=== PATIENT | female | born 1935 | race Caucasian/White ===

== ENCOUNTER 2017-07-26 18:52 | Emergency (ER) | payer MEDICARE, BC ==
[~2017-07-26] VITALS: Wt 74.2 kg
[~2017-07-26 18:52] MED LIST: CALTRATE 600600 MG PO; FISH OIL SUPER1 SGL PO; GLUCOSAMINE PO; GLUCOSAMINE500 MG; HCTZ 25MG TAB25 MG PO; MULTIPLE VITAMI1 CAP PO; PREMARIN 0.60.625 M1 PO; PRILOSEC 20MG20 MG PO; SYNTHROID0.088 MG/T PO
[2017-07-26 19:43] LABS: BASO % 0.4 % (0.0-2.0); EOS % 0.2 % (0-4.0); GRAN # 6.3 (1.4-6.5); GRAN % 68.8 % (42.2-75.2); HEMOGLOBIN 12.9 g/dl (12.5-16.0); LYMPH # 1.4 (1.2-3.4); LYMPH % 15.3 % (20.0-51.0); MEAN CELL VOLUME 93 fl (80.0-100.0); MEAN CORPUSCULAR HEMOGLOBIN 30 pg (27.0-31.0); MEAN CORPUSCULAR HGB CONC 32 g/dl (33.0-37.0); MEAN PLATELET VOLUME 10.5 fl (7.4-10.4); MONO # 1.4 (0.1-0.6); PLATELET COUNT 231 K/mm3 (130-400); REDCELL DISTRIBUTION WIDTH-CV 13.4 % (11.5-14.5)
[2017-07-26 20:01] LABS: BILIRUBIN,TOTAL 0.3 mg/dL (0.0-1.0); C-REACTIVE PROTEIN 1.9 mg/dL (0.0-0.9); CALCIUM 8.7 mg/dL (8.4-10.2); CREATININE, serum 1.05 mg/dL (0.52-1.25); POTASSIUM 3.9 mmol/L (3.4-5.0); TOTAL PROTEIN 7.3 gm/dL (6.4-8.2)
[2017-07-26 20:22] LABS: COLLECTION METHOD CATHETER
[2017-07-26 20:28] LABS: THYROID STIMULATING HORMONE 1.64 uIU/mL (0.465-4.680)
[2017-07-26 20:29] LABS: MUCOUS Present /lpf; PH 5 (5-8); SQUAMOUS EPITHELIAL 0-2 /hpf; URINE APPEARANCE Clear; URINE BACTERIA None Seen /hpf; URINE BILIRUBIN Negative (NEGATIVE); URINE BLOOD 2+ (NEGATIVE); URINE COLOR Yellow; URINE GLUCOSE Negative (NEGATIVE); URINE KETONE Negative (NEGATIVE); URINE LEUKOCYTE ESTERASE Negative (NEGATIVE); URINE NITRATE Negative (NEGATIVE); URINE PROTEIN(semi-quant) Negative (NEGATIVE); URINE UROBILINOGEN Negative (NEGATIVE)
[2017-07-26 21:20] VITALS: TEMP 101.8
[2017-07-26 21:39] LABS: INFLUENZA A NEGATIVE; INFLUENZA B POSITIVE
[2017-07-26] MEDS ORDERED: TAMIFLU 75MG75 MG PO (21:44)
[2017-07-26 22:01] VITALS: BP 178/89; PULSE 100
== END 2017-07-26 22:04 | disposition home or self-care (01) ==
LOC: COL.ER 18:52
PROVIDERS: Emergency Medicine
DX: J11.1 Influenza due to unidentified influenza virus with other respiratory manifestations (principal); R47.1 Dysarthria and anarthria
CPT/HCPCS: J1885; J7030; J7050; Q9967

== ENCOUNTER 2017-09-27 12:09 | Observation (INO) | payer MEDICARE, BC ==
[~2017-09-27] VITALS: Ht 154.9 cm; Wt 56.8 kg
[~2017-09-27 12:09] MED LIST changes: +LEVOXYL0.088 MG PO; +SEROQUEL 2525 MG/TAB PO; +TAMIFLU 75MG75 MG PO
[2017-09-27 12:36] LABS: BASO # 0.1 (0.0-0.2); BASO % 0.8 % (0.0-2.0); EOS # 0.3 (0.0-0.7); EOS % 3.2 % (0-4.0); GRAN # 5.5 (1.4-6.5); HEMATOCRIT 38.8 % (37.0-47.0); HEMOGLOBIN 12.6 g/dl (12.5-16.0); LYMPH # 2.4 (1.2-3.4); LYMPH % 26.5 % (20.0-51.0); MEAN CELL VOLUME 92 fl (80.0-100.0); MEAN CORPUSCULAR HEMOGLOBIN 30 pg (27.0-31.0); MEAN CORPUSCULAR HGB CONC 33 g/dl (33.0-37.0); MEAN PLATELET VOLUME 11.3 fl (7.4-10.4); MONO # 0.7 (0.1-0.6); MONO % 8.1 % (1.7-9.3); PLATELET COUNT 297 K/mm3 (130-400); REDCELL DISTRIBUTION WIDTH-CV 13.5 % (11.5-14.5)
[2017-09-27 12:57] LABS: ALANINE AMINOTRANSFERASE 27 U/L (9-52); ALBUMIN 3.6 gm/dL (3.5-5.0); ALKALINE PHOSPHATASE 76 U/L (50-136); ANION GAP 6 mmol/L (7-16); AST,SGOT 16 U/L (15-37); BILIRUBIN,TOTAL 0.3 mg/dL (0.0-1.0); BLOOD UREA NITROGEN 14 mg/dL (7-17); C-REACTIVE PROTEIN 0.7 mg/dL (0.0-0.9); CALCIUM 8.8 mg/dL (8.4-10.2); CARBON DIOXIDE 27 mmol/L (22-30); CHLORIDE 104 mmol/L (98-107); CREATININE, serum 0.99 mg/dL (0.52-1.25); GLUCOSE 133 mg/dL (74-106); POTASSIUM 3.9 mmol/L (3.4-5.0); SODIUM 138 mmol/L (137-145); TOTAL PROTEIN 6.7 gm/dL (6.4-8.2)
[2017-09-27 13:10] LABS: TROPONIN-I < 0.012 ng/mL (0.000-0.034)
[2017-09-27 14:35] LABS: COLLECTION METHOD CLEAN CATCH
[2017-09-27 14:40] VITALS: BP 145/67; PULSE 80
[2017-09-27 15:12] LABS: MUCOUS Present /lpf; PH 6 (5-8); SQUAMOUS EPITHELIAL None Seen /hpf; URINE APPEARANCE Clear; URINE BACTERIA None Seen /hpf; URINE BILIRUBIN Negative (NEGATIVE); URINE BLOOD Negative (NEGATIVE); URINE COLOR Yellow; URINE GLUCOSE Negative (NEGATIVE); URINE KETONE Negative (NEGATIVE); URINE LEUKOCYTE ESTERASE Negative (NEGATIVE); URINE NITRATE Negative (NEGATIVE); URINE PROTEIN(semi-quant) Negative (NEGATIVE); URINE UROBILINOGEN Negative (NEGATIVE)
[2017-09-27 16:14] VITALS: BP 149/66; PULSE 80; TEMP 98.5
[2017-09-27 20:59] VITALS: BP 139/51; PULSE 83; TEMP 98.4
[2017-09-27 23:31] VITALS: BP 141/44; PULSE 83; TEMP 98.3
[2017-09-28 03:21] VITALS: BP 130/51; PULSE 97; TEMP 98.6
[2017-09-28 06:43] LABS: BASO # 0.1 (0.0-0.2); BASO % 0.7 % (0.0-2.0); EOS # 0.3 (0.0-0.7); EOS % 2.9 % (0-4.0); GRAN # 5.5 (1.4-6.5); GRAN % 57.2 % (42.2-75.2); HEMATOCRIT 37.6 % (37.0-47.0); HEMOGLOBIN 12.3 g/dl (12.5-16.0); LYMPH # 2.9 (1.2-3.4); LYMPH % 30.3 % (20.0-51.0); MEAN CELL VOLUME 92 fl (80.0-100.0); MEAN CORPUSCULAR HEMOGLOBIN 30 pg (27.0-31.0); MEAN CORPUSCULAR HGB CONC 33 g/dl (33.0-37.0); MEAN PLATELET VOLUME 11.6 fl (7.4-10.4); MONO # 0.8 (0.1-0.6); MONO % 8.6 % (1.7-9.3); PLATELET COUNT 273 K/mm3 (130-400); REDCELL DISTRIBUTION WIDTH-CV 13.6 % (11.5-14.5)
[2017-09-28 06:50] LABS: CALCIUM 8.7 mg/dL (8.4-10.2); CREATININE, serum 0.74 mg/dL (0.52-1.25); POTASSIUM 3.8 mmol/L (3.4-5.0)
[2017-09-28 07:51] VITALS: BP 135/60; PULSE 89; TEMP 98.7
[2017-09-28 12:52] LABS: TSH w REFLEX 0.137 uIU/mL (0.465-4.680)
[2017-09-28 16:53] VITALS: BP 114/48; PULSE 116; TEMP 97.6
[2017-09-28 21:25] VITALS: BP 119/39; PULSE 91; TEMP 98.9
[2017-09-29 00:34] VITALS: BP 112/75; TEMP 98
[2017-09-29 06:39] LABS: BASO # 0.1 (0.0-0.2); BASO % 0.9 % (0.0-2.0); EOS # 0.4 (0.0-0.7); EOS % 4.6 % (0-4.0); GRAN # 4.3 (1.4-6.5); GRAN % 46.2 % (42.2-75.2); HEMATOCRIT 37.5 % (37.0-47.0); HEMOGLOBIN 12.1 g/dl (12.5-16.0); LYMPH # 3.6 (1.2-3.4); LYMPH % 38.6 % (20.0-51.0); MEAN CELL VOLUME 92 fl (80.0-100.0); MEAN CORPUSCULAR HEMOGLOBIN 30 pg (27.0-31.0); MEAN CORPUSCULAR HGB CONC 32 g/dl (33.0-37.0); MEAN PLATELET VOLUME 11.5 fl (7.4-10.4); MONO # 0.9 (0.1-0.6); MONO % 9.5 % (1.7-9.3); PLATELET COUNT 279 K/mm3 (130-400); REDCELL DISTRIBUTION WIDTH-CV 13.3 % (11.5-14.5)
[2017-09-29 07:00] LABS: CALCIUM 8.6 mg/dL (8.4-10.2); CREATININE, serum 0.76 mg/dL (0.52-1.25); POTASSIUM 3.3 mmol/L (3.4-5.0)
[2017-09-29 07:37] VITALS: BP 121/57; PULSE 90; TEMP 97.4
[2017-09-29] MEDS ORDERED: KEPPRA250 MG PO ×2 (08:57→09:47)
[2017-09-29] MEDS ORDERED: KEPPRA 500MG500 MG PO (09:47)
[2017-09-29 11:15] VITALS: BP 100/56; PULSE 76; TEMP 98.9
== END 2017-09-29 12:33 | disposition home or self-care (01) ==
LOC: COL.ER 12:09 → MEDICAL 14:52
PROVIDERS: Emergency Medicine; Physician Assistant
DX: R25.8 Other abnormal involuntary movements (principal); E87.6 Hypokalemia; F03.90 Unspecified dementia, unspecified severity, without behavioral disturbance, psychotic disturbance, mood disturbance, and anxiety; I35.1 Nonrheumatic aortic (valve) insufficiency; I10 Essential (primary) hypertension; E03.9 Hypothyroidism, unspecified; E78.5 Hyperlipidemia, unspecified; K21.9 Gastro-esophageal reflux disease without esophagitis; M19.90 Unspecified osteoarthritis, unspecified site
CPT/HCPCS: 99223-AI; 99232-AI; G0378; G8978-GP; G8979-GP; G8987-GO; G8988-GO; J1650

== ENCOUNTER 2018-07-15 14:37 | Emergency (ER) | payer MEDICARE, BC ==
[~2018-07-15] VITALS: Ht 157.5 cm; Wt 63.6 kg
[~2018-07-15 14:37] MED LIST changes: +KEPPRA 500MG500 MG PO; +KEPPRA250 MG PO
[2018-07-15 14:40] VITALS: TEMP 97.3
[2018-07-15] MEDS ORDERED: NAMENDA 10MG TA10 MG PO ×2 (15:07→15:10)
[2018-07-15] MEDS ORDERED: TYLENOL 325MG325 MG PO (15:08)
[2018-07-15] MEDS ORDERED: CALMOSEPTINE OI71 GM TP (15:08)
[2018-07-15 15:20] LABS: BASO # 0.1 (0.0-0.2); BASO % 0.6 % (0.0-2.0); EOS # 0.1 (0.0-0.7); GRAN # 7.6 (1.4-6.5); GRAN % 77.3 % (42.2-75.2); HEMATOCRIT 41.1 % (37.0-47.0); HEMOGLOBIN 13.1 g/dl (12.5-16.0); LYMPH # 1.5 (1.2-3.4); LYMPH % 14.7 % (20.0-51.0); MEAN CELL VOLUME 94 fl (80.0-100.0); MEAN CORPUSCULAR HEMOGLOBIN 30 pg (27.0-31.0); MEAN CORPUSCULAR HGB CONC 32 g/dl (33.0-37.0); MEAN PLATELET VOLUME 11.2 fl (7.4-10.4); MONO # 0.6 (0.1-0.6); PLATELET COUNT 245 K/mm3 (130-400); RED BLOOD COUNT 4.38 M/mm3 (4.10-5.30); REDCELL DISTRIBUTION WIDTH-CV 13.5 % (11.5-14.5)
[2018-07-15 15:30] LABS: ALBUMIN 3.8 gm/dL (3.5-5.0); BILIRUBIN,TOTAL 0.3 mg/dL (0.0-1.0); CREATININE, serum 1.17 mg/dL (0.52-1.25); POTASSIUM 4.2 mmol/L (3.4-5.0); TOTAL PROTEIN 7.1 gm/dL (6.4-8.2)
[2018-07-15 15:36] LABS: COLLECTION METHOD CLEAN CATCH
[2018-07-15 15:47] LABS: PROLACTIN 48.1 ng/mL (3.0-18.6)
[2018-07-15 15:47] LABS: MUCOUS Present /lpf; PH 6 (5-8); SQUAMOUS EPITHELIAL 0-2 /hpf; URINE APPEARANCE Hazy; URINE BACTERIA Rare /hpf; URINE BILIRUBIN Negative (NEGATIVE); URINE BLOOD 1+ (NEGATIVE); URINE COLOR Yellow; URINE GLUCOSE Negative (NEGATIVE); URINE KETONE Negative (NEGATIVE); URINE LEUKOCYTE ESTERASE 1+ (NEGATIVE); URINE NITRATE Negative (NEGATIVE); URINE PROTEIN(semi-quant) Negative (NEGATIVE); URINE UROBILINOGEN Negative (NEGATIVE)
[2018-07-15] MEDS ORDERED: MACROBID 1100 MG/CAP PO (15:59)
[2018-07-15 16:00] VITALS: BP 117/55; PULSE 66
== END 2018-07-15 16:39 | disposition home or self-care (01) ==
LOC: COL.ER 14:37
PROVIDERS: Family Medicine
DX: G40.909 Epilepsy, unspecified, not intractable, without status epilepticus (principal); F03.90 Unspecified dementia, unspecified severity, without behavioral disturbance, psychotic disturbance, mood disturbance, and anxiety; N39.0 Urinary tract infection, site not specified; Z79.899 Other long term (current) drug therapy

== ENCOUNTER 2018-12-24 08:09 | Emergency (ER) | payer MEDICARE, BC ==
[~2018-12-24] VITALS: Ht 152.4 cm; Wt 56.8 kg
[~2018-12-24 08:09] MED LIST changes: +CALMOSEPTINE OI71 GM TP; +MACROBID 1100 MG/CAP PO; +NAMENDA 10MG TA10 MG PO; +TYLENOL 325MG325 MG PO
[2018-12-24 08:10] VITALS: BP 161/83; TEMP 98.7
[2018-12-24 08:50] LABS: BASO # 0.1 (0.0-0.2); BASO % 0.4 % (0.0-2.0); EOS # 0.2 (0.0-0.7); GRAN # 7.5 (1.4-6.5); GRAN % 63.5 % (42.2-75.2); HEMATOCRIT 41.2 % (37.0-47.0); HEMOGLOBIN 13.3 g/dl (12.5-16.0); LYMPH % 25.4 % (20.0-51.0); MEAN CELL VOLUME 94 fl (80.0-100.0); MEAN CORPUSCULAR HEMOGLOBIN 30 pg (27.0-31.0); MEAN CORPUSCULAR HGB CONC 32 g/dl (33.0-37.0); MEAN PLATELET VOLUME 11.2 fl (7.4-10.4); MONO % 8.4 % (1.7-9.3); PLATELET COUNT 259 K/mm3 (130-400); RED BLOOD COUNT 4.37 M/mm3 (4.10-5.30); REDCELL DISTRIBUTION WIDTH-CV 13.1 % (11.5-14.5)
[2018-12-24 09:01] LABS: ALANINE AMINOTRANSFERASE < 6 U/L (9-52); ALKALINE PHOSPHATASE 118 U/L (50-136); ANION GAP 10 mmol/L (7-16); AST,SGOT 16 U/L (15-37); BILIRUBIN,TOTAL 0.5 mg/dL (0.0-1.0); BLOOD UREA NITROGEN 18 mg/dL (7-17); CALCIUM 9.3 mg/dL (8.4-10.2); CARBON DIOXIDE 27 mmol/L (22-30); CHLORIDE 103 mmol/L (98-107); CREATININE, serum 0.76 (0.52-1.25); GLUCOSE 104 mg/dL (74-106); POTASSIUM 3.9 mmol/L (3.4-5.0); SODIUM 140 mmol/L (137-145); TOTAL PROTEIN 7.8 gm/dL (6.4-8.2)
[2018-12-24 09:31] LABS: TSH w REFLEX 0.305 uIU/mL (0.465-4.680)
[2018-12-24 11:15] VITALS: PULSE 80
== END 2018-12-24 11:15 | disposition home or self-care (01) ==
LOC: COL.ER 08:09
PROVIDERS: Emergency Medicine
DX: S82.141A Displaced bicondylar fracture of right tibia, initial encounter for closed fracture (principal); I10 Essential (primary) hypertension; E78.5 Hyperlipidemia, unspecified; M10.9 Gout, unspecified; W19.XXXA Unspecified fall, initial encounter; Y92.129 Unspecified place in nursing home as the place of occurrence of the external cause
CPT/HCPCS: L1846

== ENCOUNTER → 2019-05-16 | Outpatient (CLI) | payer MEDICARE, BC ==
[2019-05-16 21:13] LABS: COLLECTION METHOD CLEAN CATCH
[2019-05-16 21:21] LABS: MUCOUS Present /lpf; PH 5 (5-8); URINE APPEARANCE Cloudy; URINE BACTERIA Moderate /hpf; URINE BILIRUBIN Negative (NEGATIVE); URINE BLOOD Negative (NEGATIVE); URINE COLOR Yellow; URINE GLUCOSE Negative (NEGATIVE); URINE KETONE Negative (NEGATIVE); URINE LEUKOCYTE ESTERASE 3+ (NEGATIVE); URINE NITRATE Negative (NEGATIVE); URINE PROTEIN(semi-quant) 1+ (NEGATIVE); URINE UROBILINOGEN Negative (NEGATIVE)
[2019-05-16 21:23] LABS: ALANINE AMINOTRANSFERASE 14 U/L (9-52); ALBUMIN 3.3 gm/dL (3.5-5.0); ALKALINE PHOSPHATASE 80 U/L (50-136); ANION GAP 9 mmol/L (7-16); AST,SGOT 14 U/L (15-37); BILIRUBIN,TOTAL < 0.1 mg/dL (0.0-1.0); BLOOD UREA NITROGEN 19 mg/dL (7-17); CALCIUM 8.6 mg/dL (8.4-10.2); CARBON DIOXIDE 23 mmol/L (22-30); CHLORIDE 107 mmol/L (98-107); CREATININE, serum 0.86 (0.52-1.25); GLUCOSE 91 mg/dL (74-106); POTASSIUM 4.1 mmol/L (3.4-5.0); SODIUM 140 mmol/L (137-145); TOTAL PROTEIN 6.2 gm/dL (6.4-8.2)
[2019-05-16 21:53] LABS: THYROID STIMULATING HORMONE 0.861 uIU/mL (0.465-4.680)
[2019-05-16 22:15] LABS: BASO # 0.1 (0.0-0.2); BASO % 0.7 % (0.0-2.0); EOS # 0.4 (0.0-0.7); EOS % 4.1 % (0-4.0); GRAN # 5.2 (1.4-6.5); GRAN % 49.2 % (42.2-75.2); HEMATOCRIT 37.3 % (37.0-47.0); LYMPH # 3.9 (1.2-3.4); LYMPH % 36.8 % (20.0-51.0); MEAN CELL VOLUME 93 fl (80.0-100.0); MEAN CORPUSCULAR HEMOGLOBIN 30 pg (27.0-31.0); MEAN CORPUSCULAR HGB CONC 32 g/dl (33.0-37.0); MEAN PLATELET VOLUME 11.5 fl (7.4-10.4); MONO # 0.9 (0.1-0.6); MONO % 8.8 % (1.7-9.3); PLATELET COUNT 275 K/mm3 (130-400)
== END ==
LOC: ZCOL.LAB 17:49
PROVIDERS: Internal Medicine
DX: Z51.81 Encounter for therapeutic drug level monitoring (principal); Z13.29 Encounter for screening for other suspected endocrine disorder; N39.0 Urinary tract infection, site not specified; R79.89 Other specified abnormal findings of blood chemistry

== ENCOUNTER → 2019-05-18 | Outpatient (CLI) | payer MEDICARE, BC | LOC: ZCOL.LAB 08:15 → COL.LAB 08:15 | DX: Z51.81 Encounter for therapeutic drug level monitoring (principal) ==

== ENCOUNTER → 2019-09-16 | Outpatient (CLI) | payer MEDICARE, BC | LOC: ZCOL.LAB 11:06 | DX: J10.1 Influenza due to other identified influenza virus with other respiratory manifestations (principal) ==

== ENCOUNTER 2020-01-27 19:54 | Observation (INO) | payer MEDICARE, BC ==
[~2020-01-27] VITALS: Ht 162.6 cm; Wt 60.1 kg
[2020-01-27 20:10] LABS: HEMATOCRIT 43.9 % (37.0-47.0); HEMOGLOBIN 14.1 g/dl (12.5-16.0); MEAN CELL VOLUME 96 fl (80.0-100.0); MEAN CORPUSCULAR HEMOGLOBIN 31 pg (27.0-31.0); MEAN CORPUSCULAR HGB CONC 32 g/dl (33.0-37.0); MEAN PLATELET VOLUME 10.9 fl (7.4-10.4); PLATELET COUNT 294 K/mm3 (130-400); RED BLOOD COUNT 4.58 M/mm3 (4.10-5.30); REDCELL DISTRIBUTION WIDTH-CV 12.6 % (11.5-14.5)
[2020-01-27 20:26] LABS: ALBUMIN 4.1 gm/dL (3.5-5.0); BILIRUBIN,TOTAL 0.3 mg/dL (0.0-1.0); C-REACTIVE PROTEIN 0.8 mg/dL (0.0-0.9); CALCIUM 9.2 mg/dL (8.4-10.2); CREATININE, serum 0.87 (0.52-1.25); POTASSIUM 4.5 mmol/L (3.4-5.0); TOTAL PROTEIN 7.8 gm/dL (6.4-8.2)
[2020-01-27 20:29] LABS: COLLECTION METHOD CLEAN CATCH
[2020-01-27 20:36] LABS: MUCOUS Present /lpf; PH 5 (5-8); SQUAMOUS EPITHELIAL None Seen /hpf; URINE APPEARANCE Hazy; URINE BACTERIA Rare /hpf; URINE BILIRUBIN Negative (NEGATIVE); URINE BLOOD 1+ (NEGATIVE); URINE COLOR Yellow; URINE GLUCOSE 2+ (NEGATIVE); URINE KETONE Negative (NEGATIVE); URINE LEUKOCYTE ESTERASE Negative (NEGATIVE); URINE NITRATE Negative (NEGATIVE); URINE PROTEIN(semi-quant) Negative (NEGATIVE); URINE RBC 0-2 /hpf; URINE UROBILINOGEN Negative (NEGATIVE)
[2020-01-27 20:52] LABS: LYMPHOCYTE 7 % (20.0-51.0); NEUTROPHILS 84 % (42.0-75.2); PLATELET ESTIMATE NORMAL (NORMAL)
[2020-01-27 23:35] VITALS: BP 158/65; PULSE 96; TEMP 99.5
--- NOTE | 2020-01-28 | NUR ---
Pt arrived to the floor via stretcher. Pt has no been verbal. Pt was wet so pt was changed. Pt bottom had no redness. Pt did have mucus and a few spots of blood in her breif. Pt bed is in lowest position and her call light is within reach. Pt bed alarm is also on at this time.
--- NOTE | 2020-01-28 02:00 | NUR ---
Pt was changed at this time pt. Pt still had some mucus in her brief and a few spot of blood was also in her brief. Pt has been verbal to some staff through the shift. Pt does not appear to be in any pain. When rolling her to the left side she did pull back like it was painful. After repositioning her she was ok. Pt has her call light within reach and her bed is in lowest position and bed alarm is on at this time.
[2020-01-28] MEDS ORDERED: ATROVENTNS0.03% NS (03:30)
[2020-01-28] MEDS ORDERED: DULCOLAX TAB5 MG PO (03:40)
[2020-01-28] MEDS ORDERED: MIRALAX PA17 GM/Dose PO (03:42)
[2020-01-28 04:16] VITALS: BP 125/60; PULSE 83; TEMP 98.3
--- NOTE | 2020-01-28 07:31 | NUR ---
Reported off to SADIE Jordan. Pt has her call light within reach and her bed is in lowest position and bed alarm is on at this time. Pt was repostioned in bed and a warm blanket was provided at this time.
[2020-01-28 07:34] LABS: BASO # 0.1 (0.0-0.2); BASO % 0.3 % (0.0-2.0); EOS # 0.3 (0.0-0.7); GRAN # 9.3 (1.4-6.5); GRAN % 61.7 % (42.2-75.2); INR 1.1 (0.8-3.0); LYMPH # 3.9 (1.2-3.4); LYMPH % 25.9 % (20.0-51.0); MEAN CELL VOLUME 96 fl (80.0-100.0); MEAN CORPUSCULAR HGB CONC 33 g/dl (33.0-37.0); MEAN PLATELET VOLUME 11.5 fl (7.4-10.4); MONO # 1.5 (0.1-0.6); MONO % 9.8 % (1.7-9.3); PLATELET COUNT 253 K/mm3 (130-400); PROTHROMBIN TIME 11.9 SECONDS (9.7-12.8); RED BLOOD COUNT 3.78 M/mm3 (4.10-5.30); REDCELL DISTRIBUTION WIDTH-CV 12.8 % (11.5-14.5)
[2020-01-28 07:38] LABS: C-REACTIVE PROTEIN 2.5 mg/dL (0.0-0.9); CALCIUM 8.6 mg/dL (8.4-10.2); CREATININE, serum 0.74 (0.52-1.25); MAGNESIUM 1.8 mg/dL (1.6-2.3); POTASSIUM 3.8 mmol/L (3.4-5.0)
[2020-01-28 07:44] LABS: HEMATOCRIT 36.2 % (37.0-47.0); HEMOGLOBIN 11.8 g/dl (12.5-16.0); MEAN CORPUSCULAR HEMOGLOBIN 31 pg (27.0-31.0)
[2020-01-28 10:11] VITALS: BP 139/47; PULSE 72; TEMP 98.9
--- NOTE | 2020-01-28 10:56 | NUR ---
Engineering Technician attended clinical rounds with the team and patient would not answer any questions from Hospitalist. Per RN, patient has not been talking. 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 JENNIFER faxed clinical updates and collaborated with Hospitalist to order PT/OT and COVID testing since patient is from [facility]. Claudio to fax guardianship documents to JENNIFER. JENNIFER contacted patient's guardian, Sapphire to discuss discharge planning. Sapphire reports patient normally does not talk and that staff at [facility] rely heavily on patient's facial expressions. Sapphire states patient has lived at [facility] for a couple years and that the plan is to return to [facility] upon discharge. Patient sees Dr. Payton Harrison for primary care. Patient receives assistance with ADLS from staff at [facility]. Sapphire reports patient mainly uses her wheelchair but believes patient has recently been working with therapy. Sapphire confirms that she is patient's legal guardian. JENNIFER will continue to follow.
[2020-01-28 13:26] VITALS: BP 127/50; PULSE 65; TEMP 99.1
--- NOTE | 2020-01-28 14:44 | NUR ---
[employer] placed Guardianship documents in patient's chart. SW will continue to follow.
--- NOTE | 2020-01-28 15:08 | NUR ---
Patient down to CT.
[2020-01-28 16:10] VITALS: BP 139/50; PULSE 64; TEMP 98.8
--- NOTE | 2020-01-28 19:49 | NUR ---
Patient has done well throughout the day. Is nonverbal but will answer yes and no questions. Has been incontinent of urine throughout the day, pericare provided. Repositioned in bed throughout the day, patient is able to change positions independently. Fluids and antibiotics infusing per orders. Reported off to overnight houseperson.
[2020-01-28 19:52] VITALS: BP 152/56; PULSE 78; TEMP 98.1
--- NOTE | 2020-01-28 20:00 | NUR ---
Received report from SADIE Jordan. Pt is alert, nonverbal, resting comfortably in bed. Compliant with care, follows commands and able to nod 'yes' and 'no' to questions. Denies pain, NAD. Meds administered as ordered. PO meds given crushed with applesause. Made pt comfortable in bed. Seizure precautiona in place, seizure pads on bed, bed alarm set. Call light within reach.
[2020-01-28 23:56] VITALS: BP 154/50; PULSE 82; TEMP 98
[2020-01-29 03:55] VITALS: BP 139/55; PULSE 77; TEMP 98.3
--- NOTE | 2020-01-29 05:31 | NUR ---
Pt uneventful during this shift. meds administered. bed alarm set.
--- NOTE | 2020-01-29 06:57 | NUR ---
REPORT GIVEN TO SADIE MORILLO.
[2020-01-29 08:31] VITALS: BP 143/77; PULSE 78; TEMP 98.4
--- NOTE | 2020-01-29 09:50 | NUR ---
Patient up stood at edge of bed with therapy. Patient in non verbal, does respond and can follow some directions. She was incontinent of urine, incontince care provided. Excoration noted & cream applied. Patient sitting up tolerating clears. New iv started to Rfa. Lfa infiltation noted.
[2020-01-29] MEDS ORDERED: FLAGYL500 MG PO (11:11)
[2020-01-29] MEDS ORDERED: CIPRO 500MG TA500 MG PO (11:11)
[2020-01-29 11:20] VITALS: BP 148/60; PULSE 71; TEMP 98.4
[2020-01-29 11:39] VITALS: BP 148/60; PULSE 71; TEMP 98.4
--- NOTE | 2020-01-29 12:53 | NUR ---
Ditching Machine Operating Engineer attended clinical rounds with the team and patient to discharge back to [facility] today. JENNIFER contacted Claudio at [facility] and set transport time for 1300. JENNIFER provided transport time to [facility]. JENNIFER contacted Sapphire, Guardian to provide update and transport time. Sapphire is in agreement with discharge plan. JENNIFER faxed discharge orders and negative COVID results to Claudio at [facility]. No additional needs at this time.
--- NOTE | 2020-01-29 13:15 | NUR ---
Patient tolerated lunch, assisted her and she ate the whole tray. NO signs or pain or nausea. Patient assisted to dress, incontinent again of urine. New brief. Patient Wheeled out with all belongings, Jed jimenes taking her home. Report called to trino & all questions answered.
== END 2020-01-29 13:17 ==
LOC: COL.ER 19:54 → SURG 21:57
PROVIDERS: Family Medicine; ADMIT Internal Medicine
DX: K92.1 Melena (principal); K55.9 Vascular disorder of intestine, unspecified; K21.9 Gastro-esophageal reflux disease without esophagitis; F03.90 Unspecified dementia, unspecified severity, without behavioral disturbance, psychotic disturbance, mood disturbance, and anxiety; I10 Essential (primary) hypertension; E03.9 Hypothyroidism, unspecified; E78.5 Hyperlipidemia, unspecified; M19.90 Unspecified osteoarthritis, unspecified site; D72.829 Elevated white blood cell count, unspecified; Z11.59 Encounter for screening for other viral diseases
CPT/HCPCS: 99232-AI; C9113; G0378; J2405; J2543; J7030; J7120; Q9967

== ENCOUNTER → 2020-02-10 | Outpatient (CLI) | payer MEDICARE, BC ==
[~2020-02-10] MED LIST changes: +ATROVENTNS0.03% NS; +CIPRO 500MG TA500 MG PO; +DULCOLAX TAB5 MG PO; +FLAGYL500 MG PO; +MIRALAX PA17 GM/Dose PO
[2020-02-10 12:58] LABS: BASO # 0.1 (0.0-0.2); BASO % 0.7 % (0.0-2.0); EOS # 0.4 (0.0-0.7); EOS % 3.7 % (0-4.0); GRAN # 5.3 (1.4-6.5); GRAN % 56.8 % (42.2-75.2); HEMATOCRIT 39.2 % (37.0-47.0); HEMOGLOBIN 12.4 g/dl (12.5-16.0); LYMPH # 2.7 (1.2-3.4); LYMPH % 29.1 % (20.0-51.0); MEAN CELL VOLUME 96 fl (80.0-100.0); MEAN CORPUSCULAR HEMOGLOBIN 31 pg (27.0-31.0); MEAN CORPUSCULAR HGB CONC 32 g/dl (33.0-37.0); MEAN PLATELET VOLUME 11.7 fl (7.4-10.4); MONO # 0.9 (0.1-0.6); MONO % 9.4 % (1.7-9.3); PLATELET COUNT 300 K/mm3 (130-400); RED BLOOD COUNT 4.07 M/mm3 (4.10-5.30); REDCELL DISTRIBUTION WIDTH-CV 12.8 % (11.5-14.5)
== END ==
LOC: ZCOL.LAB 12:32 → ZLAB.STJ 12:32
PROVIDERS: Internal Medicine
DX: K92.2 Gastrointestinal hemorrhage, unspecified (principal)

== ENCOUNTER → 2020-05-21 | Outpatient (CLI) | payer MEDICARE, BC ==
[2020-05-21 11:57] LABS: HEMATOCRIT 38.5 % (37.0-47.0); HEMOGLOBIN 12.4 g/dl (12.5-16.0); MEAN CELL VOLUME 95 fl (80.0-100.0); MEAN CORPUSCULAR HEMOGLOBIN 31 pg (27.0-31.0); MEAN CORPUSCULAR HGB CONC 32 g/dl (33.0-37.0); MEAN PLATELET VOLUME 11.8 fl (7.4-10.4); PLATELET COUNT 280 K/mm3 (130-400); RED BLOOD COUNT 4.07 M/mm3 (4.10-5.30); REDCELL DISTRIBUTION WIDTH-CV 12.8 % (11.5-14.5)
== END ==
LOC: ZCOL.LAB 10:19
PROVIDERS: Internal Medicine
DX: E03.1 Congenital hypothyroidism without goiter (principal); R56.9 Unspecified convulsions

== ENCOUNTER → 2020-06-25 | Outpatient (CLI) | payer MEDICARE, BC | LOC: ZCOL.LAB 12:33 | DX: E03.1 Congenital hypothyroidism without goiter (principal) ==

== ENCOUNTER → 2020-08-12 | Outpatient (CLI) | payer MEDICARE, BC ==
[2020-08-12 15:37] LABS: BASO # 0.1 (0.0-0.2); BASO % 0.6 % (0.0-2.0); EOS # 0.3 (0.0-0.7); EOS % 2.8 % (0-4.0); GRAN # 5.8 (1.4-6.5); GRAN % 61.2 % (42.2-75.2); HEMOGLOBIN 12.4 g/dl (12.5-16.0); LYMPH # 2.5 (1.2-3.4); LYMPH % 26.8 % (20.0-51.0); MEAN CELL VOLUME 94 fl (80.0-100.0); MEAN CORPUSCULAR HEMOGLOBIN 31 pg (27.0-31.0); MEAN CORPUSCULAR HGB CONC 33 g/dl (33.0-37.0); MEAN PLATELET VOLUME 11.9 fl (7.4-10.4); MONO # 0.8 (0.1-0.6); MONO % 8.3 % (1.7-9.3); PLATELET COUNT 277 K/mm3 (130-400); RED BLOOD COUNT 4.06 M/mm3 (4.10-5.30); REDCELL DISTRIBUTION WIDTH-CV 13.1 % (11.5-14.5)
== END ==
LOC: ZCOL.LAB 15:20
PROVIDERS: Internal Medicine
DX: M62.81 Muscle weakness (generalized) (principal); E03.1 Congenital hypothyroidism without goiter

== ENCOUNTER → 2021-08-14 | Outpatient (CLI) | payer MEDICARE, BC ==
[2021-08-14 19:08] LABS: COLLECTION METHOD CATHETER
[2021-08-14 19:28] LABS: AMORPHOUS CRYSTAL Present (NOT PRESENT); MUCOUS Present (NOT PRESENT); PH 5 (5-8); SQUAMOUS EPITHELIAL None Seen /hpf (0-10); URINE APPEARANCE Turbid (CLEAR/HAZY); URINE BACTERIA Many /hpf (NONE SEEN); URINE BILIRUBIN Negative (NEGATIVE); URINE BLOOD 2+ (NEGATIVE); URINE COLOR Yellow (YELLOW); URINE GLUCOSE Negative (NEGATIVE); URINE KETONE Trace (NEGATIVE); URINE LEUKOCYTE ESTERASE Trace (NEGATIVE); URINE NITRATE Positive (NEGATIVE); URINE PROTEIN(semi-quant) Negative (NEGATIVE); URINE RBC 0-2 /hpf (0-2); URINE UROBILINOGEN >=4.0 (NEGATIVE); URINE WBC 0-2 /hpf (0-2)
== END ==
LOC: ZCOL.LAB 18:29
PROVIDERS: Internal Medicine
DX: N39.0 Urinary tract infection, site not specified (principal)